=== PATIENT | male | born 1990 | race Two or more races ===

== ENCOUNTER 2023-07-10 19:03 | Day surgery (SDC) | payer OTHER, SELFPAY ==
[2023-07-10] VITALS (7 sets, daily range): BP systolic 105–142; BP diastolic 61–79; PULSE 73–104; RESP 15–19; TEMP 36.8–37; O2SAT 95–98; BMI 31.6
--- NOTE | ~2023-07-10 | XR_ITS ---
EXAMINATION: XR SOFT TISSUE NECK CLINICAL INDICATION: Foreign body chicken. COMPARISON: None available. TECHNIQUE: 2 views of the soft tissue neck were obtained. FINDINGS: Soft tissue films of the neck demonstrate a normal larynx, pharynx and upper trachea. No soft tissue swelling or opaque foreign body is demonstrated. No compromise of the areas seen. There is reversal of cervical lordosis. XR/XR soft tissue neck IMPRESSION: Unremarkable soft tissue neck examination.
--- NOTE | 2023-07-10 19:23 | ED.GENADULT ---
HPI - General Adult General Chief complaint: General Medical Stated complaint: CHOKED ON CHICKEN,STILL FEELS IN THROAT PER EMS Time Seen by Provider: 07/10/23 19:14 Source: patient Mode of arrival: ambulatory Limitations: no limitations History of Present Illness HPI narrative: Patient was healthy was eating chicken choked on it unable to swallow after that unable to swallow his secretions speech is normal never had similar incident in the past feels piece of meat choked is throat speaking full sentences Related Data Allergies Allergy/AdvReac Type Severity Reaction Status Date / Time walnut Allergy Intermediate UNKNOWN Unverified 04/24/22 14:40 bee pollen [Bee Stings] AdvReac Intermediate UNKNOWN Unverified 04/24/22 14:40 From PERCOCET Allergy Unknown HIVES Uncoded 04/24/22 14:40 Review of Systems Review of Systems: Yes all other systems are reviewed and are negative [facility] Social History Social History Advance Directives: No Advance Directives Information Provided: No Physical Exam ED Vital Signs: Vital Signs - 24 hr 07/10/23 19:09 07/10/23 19:47 07/10/23 23:10 Temperature 98.6 F 98.3 F 98.6 F Pulse Rate 93 98 86 Respiratory Rate 18 19 15 Blood Pressure 111/79 115/73 112/64 Pulse Oximetry 98 98 96 Oxygen Delivery Method Room Air Room Air Nasal Cannula 07/10/23 23:15 07/10/23 23:20 07/10/23 23:25 Temperature Pulse Rate 83 80 78 Respiratory Rate 15 15 15 Blood Pressure 106/70 110/72 112/69 Pulse Oximetry 96 95 96 Oxygen Delivery Method Nasal Cannula Nasal Cannula Room Air 07/10/23 23:40 Temperature 98.6 F Pulse Rate 73 Respiratory Rate 15 Blood Pressure 105/61 Pulse Oximetry 96 Oxygen Delivery Method Room Air BMI result Body Mass Index 31.6 Appearance: Alert. Oriented X3. In mild distress Eyes: PERRLA, No Nystagmus ENT: Pharynx normal. Oral Mucosa moist no stridor Neck: Normal inspection. Neck supple. CVS: Normal heart rate and rhythm. Pulses normal. Respiratory: No respiratory distress. Equal air entry bilateral, no wheezing/rales/rhonchi Abdomen: Soft and nontender. Bowel sounds are present, Skin: Skin warm and dry. Normal skin color. Normal skin turgor. Extremities: No lower extremity edema. No calf tenderness Neuro: Oriented X 3. Medications Administered Discontinued Medications Generic Name Dose Route Start Last Admin Trade Name Santhosh PRN Reason Stop Dose Admin Famotidine 20 mg 07/10/23 20:23 07/10/23 20:32 Famotidine/Pf 20 Mg/2 Ml Vial IVPUSH 07/10/23 20:24 20 mg ONCE ONE Administration Glucagon 1 mg 07/10/23 19:17 07/10/23 19:40 Glucagon Hcl 1 Mg Vial IVPUSH 07/10/23 19:18 1 mg ONCE ONE Administration Sodium Chloride 1,000 mls @ 999 mls/hr 07/10/23 19:17 07/10/23 21:31 Ns IV 07/10/23 20:17 Infused .Q1H1M ONE Infusion Morphine Sulfate 4 mg 07/10/23 20:23 07/10/23 20:34 Morphine Sulfate 4 Mg/Ml Cartridge IVPUSH 07/10/23 20:24 4 mg ONCE ONE Administration Protocol Ondansetron HCl 4 mg 07/10/23 20:23 07/10/23 20:34 Ondansetron Hcl 4 Mg/2 Ml Vial IVPUSH 07/10/23 20:24 4 mg ONCE ONE Administration Medical Decision Making Medical Decision Making [facility] Narrative: Patient with acute foreign body piece of chicken meat impacted upper esophagus unable to swallow liquids or his own secretions IV glucagon tried without any success Gas-X was also tried without any success. Will call transformer repairer for endoscopy removal of the foreign body Dr. Rodriguez here take the patient to OR for endoscopy Independent Interpretation I performed an independent interpretation of an: Plain X-Ray Radiology Impression Discussion of test interpretation with radiology: I have reviewed the radiologist's reading. Radiologist Impression: [address] [address] XRay Report Signed Patient: Cdoy Cueva MR#: [id number] : 1990 Acct:[id number] Age/Sex: 32 / M ADM Date: 07/10/23 Loc: .ED Attending Dr: Ordering Physician: Clifford Moore MD Date of Service: 07/10/23 Procedure(s): XR soft tissue neck Accession Number(s): [id number] cc: Physician,Unknown ; Clifford Moore MD~ EXAMINATION: XR SOFT TISSUE NECK CLINICAL INDICATION: Foreign body chicken. COMPARISON: None available. TECHNIQUE: 2 views of the soft tissue neck were obtained. FINDINGS: Soft tissue films of the neck demonstrate a normal larynx, pharynx and upper trachea. No soft tissue swelling or opaque foreign body is demonstrated. No compromise of the areas seen. There is reversal of cervical lordosis. XR/XR soft tissue neck IMPRESSION: Unremarkable soft tissue neck examination. Discharge Plan Discharge Clinical Impression: Esophageal foreign body Patient Disposition: Still a Patient Discharge Date/Time: 07/10/23 22:06
[2023-07-10] MEDS: glucagon HCL 1 MG VIAL IVPUSH (19:40)
[2023-07-10] MEDS: 0.9 % Sodium Chloride 1,000 ML 999 ML IV (19:42)
[2023-07-10] MEDS: Famotidine/PF 20 MG/2 ML VIAL IVPUSH (20:32)
[2023-07-10] MEDS: ondansetron HCL 4 MG/2 ML VIAL IVPUSH (20:34)
[2023-07-10] MEDS: Morphine Sulfate 4 MG/ML CARTRIDGE IVPUSH (20:34)
--- NOTE | 2023-07-10 20:39 | PC.NURSE ---
pt a&ox4, vss, continuing to report sensation of chicken stuck in the back of his throat and acid reflux, pt reports difficulty swallowing secretions. 20G IV placed right AC, medicated per OCT.
--- NOTE | 2023-07-10 21:20 | MHC.SHP ---
Pre-Procedural Eval Section A Date of Service: 07/10/23 The patient is an INPATIENT: No The History & Physical has been completed within 30 days and I have reviewed it.: Yes Section B Chief Complaint: CHOKED ON CHICKEN,STILL FEELS IN THROAT PER EMS Allergies: Allergies Allergy/AdvReac Type Severity Reaction Status Date / Time walnut Allergy Intermediate UNKNOWN Unverified 04/24/22 14:40 bee pollen [Bee Stings] AdvReac Intermediate UNKNOWN Unverified 04/24/22 14:40 From PERCOCET Allergy Unknown HIVES Uncoded 04/24/22 14:40 Plan I have reviewed the history and physical and performed a pertinent physical examination on my patient. No changes have occurred unless specified. Time Spent With Patient Time: Total time managing care of this patient today ____ minutes.
--- NOTE | 2023-07-10 21:20 | PM.EVENT ---
Event Note Date of Service: 07/10/23 Event Note: GI Consult-Full note dictated Imp: Esophageal obstruction due to food that remains refractory to medical therapy. He remains unable to swallow saliva. Rec: EGD with KEENA rodriguez. Full consent obtained from him and his significant other, including risks of bleeding and perforation. They were comfortable with this plan. Thanks. Time Spent With Patient Time: Total time managing care of this patient today ____ minutes.
--- NOTE | 2023-07-10 21:31 | PC.NURSE ---
RN-RN report given to OR, pt changed over, OR at bedside for pt transport.
--- NOTE | 2023-07-10 23:09 | P.BOP_ITS ---
Brief Operative Note Date of Service: 07/10/23 Pre-op diagnosis: Esophageal obstruction Post-op diagnosis: other (Same, R/O EoE) Procedure: Upper endoscopy with removal of food bolus, and biopsies Surgeon: Krish Rodriguez MD Anesthesia: GETA and other (Glucagon 1mg IV x 2 doses) Was an Lead Java Developer Architect used for this Procedure?: No Estimated blood loss (mL): 2.0 Pathology: other (Esophagus 20-25cm) Condition: stable Disposition: PACU
--- NOTE | 2023-07-10 23:14 | HO.ANESPROP2 ---
PMF Active Problems Active Problems: All Active Problems (Updated 07/10/23 @ 21:18 by Clifford Moore MD) Esophageal foreign body (Acute) Family History Family history of problems with anesthesia: No Surgical History History of Problems with Anesthesia: No Social History Social History Advance Directives: No Advance Directives Information Provided: No Meds Allergies Allergy/AdvReac Type Severity Reaction Status Date / Time walnut Allergy Intermediate UNKNOWN Unverified 04/24/22 14:40 bee pollen [Bee Stings] AdvReac Intermediate UNKNOWN Unverified 04/24/22 14:40 From PERCOCET Allergy Unknown HIVES Uncoded 04/24/22 14:40 Exam Height,Weight and Vital Signs: Height 6 ft 4 in Weight 117.934 kg Last Vital Signs Temp 98.6 F 07/10/23 23:10 Pulse 86 07/10/23 23:10 Resp 15 07/10/23 23:10 BP 112/64 07/10/23 23:10 Pulse Ox 96 07/10/23 23:10 O2 Del Method Nasal Cannula 07/10/23 23:10 Airway Mallampati Class: II TM Dist: >3cm Neck ROM: Full Assessment and Plan Assessment Anesthesia Assessment: Anesthesia Plan Discussed and Chart Reviewed Final Anesthetic Review Family History of Problems with Anesthesia: No History of Problems with Anesthesia: No NPO: No ASA Class: II and Emergency Final Preanesthetic Review: No Changes in Pt Med Stat, Meds/Allgs Chart Reviewed, Consent Obtained/Reviewed and Anes Risks/Benef Reviewed Patient Risk: Intermediate Procedure Risk: Low Anesthetic Plan Anesthetic Plan: GA Disposition: Standard PACU
--- NOTE | 2023-07-11 01:12 | OP_ITS ---
DATE OF SERVICE: 07/10/2023 SURGEON: Krish Rodriguez MD INDICATIONS: The patient presents for evaluation of acute esophageal obstruction and dysphagia. Full consent has been obtained from him for this, including risks of bleeding and perforation. PREOPERATIVE DIAGNOSIS: Esophageal obstruction and dysphagia. POSTOPERATIVE DIAGNOSIS: PROCEDURE PERFORMED: Upper endoscopy with removal of esophageal food bolus and biopsies. ESTIMATED BLOOD LOSS: COMPLICATIONS: ANESTHESIA: General anesthesia and glucagon 1 mg IV x2 doses. ASSISTANTS: SPECIMENS: POSTOPERATIVE DIAGNOSES: Esophageal obstruction and dysphagia, rule out eosinophilic esophagitis. DESCRIPTION OF PROCEDURE: The patient was placed in the supine position. The Olympus video gastroscope was passed in the posterior oropharynx and upper esophagus under direct vision. At approximately 20 cm was a food bolus. This was quite firm and would not move while trying to push it with the gastroscope. At that point, I spent about 1 hour breaking up the food bolus with a combination of biopsy forceps, a 3 pronged grasper, a cold snare, and a retrieval net. After about 1 hour, I was able to sufficiently break it up and then finally pull out a large piece of chicken with the 3 pronged grabber. At that point, the scope was passed back into the esophagus under direct vision. I was able to then easily advance to the gastroesophageal junction at 40 cm and then enter the stomach. However, the stomach had a fair amount of liquid and food as well. Therefore, inspection of the stomach was not made. The gastroesophageal junction at 40 cm appeared patent and without any sign of stricture. There was some edema and erythema but no ulceration nor mass. The entire esophagus was carefully inspected and any residual food was pushed into the stomach. I did not visualize any esophageal mucosal abnormalities other than areas of edema and some erythema. There was no ulceration nor stricture. The proximal esophagus where the food had lodged did not seem to have any ruptured ring nor other significant narrowing. I did feel there were some subtle proximal esophageal rings and biopsies were obtained between 20 and 25 cm to rule out eosinophilic esophagitis. At that point, the scope was withdrawn from the patient. He tolerated the procedure well and was returned to the recovery area in stable condition. IMPRESSION: 1. Esophageal obstruction, status post upper endoscopy and removal of food bolus. 2. Rule out eosinophilic esophagitis. PLAN: The results of the biopsies will be checked. I shall send him home with a prescription to use omeprazole 40 mg daily for 1 month. I do not think he needs to be on it chronically at this time. He has been given instructions to avoid aspirin and NSAIDs for least a week. He has been given instructions to obviously eat carefully and be sure to cut up any meat or hard food. I will plan to see him in the office. If he has no further symptoms, then I do not think he would need any further evaluation. If he continues to have significant dysphagia, we may want to proceed with a barium swallow, esophageal motility studies, and/or repeat upper endoscopy. This has been discussed in detail with the patient and his significant other. MD GISELE Penn/ARTHUR / [id number] MTDD
--- NOTE | 2023-07-11 01:52 | CONS_ITS ---
DATE OF SERVICE: 07/10/2023 REASON FOR CONSULTATION: Esophageal obstruction and dysphagia. HISTORY OF PRESENT ILLNESS: This has been obtained from the patient. The patient is a 32-year-old male who was in his usual state of health up until early this evening when he was having chicken soup and developed acute esophageal obstruction. Since that time, he has been unable to swallow any liquids nor saliva. He was treated with glucagon in the ER, but without any relief. He reports that he has never had this problem before. He denies any chronic heartburn nor any other symptoms of dysphagia in the past. He enjoys a good appetite otherwise. He does describe some symptoms of irritable bowel syndrome and describes taking what sounds like dicyclomine several times a day for that. He denies any present problems with chest pain, shortness of breath, nor abdominal pain since the dysphagia began. He denies any known family history of esophageal disease. MEDICATIONS: At home, possible dicyclomine. PAST MEDICAL HISTORY: Irritable bowel syndrome by his description. He denies any history of heart disease, diabetes, stroke, lung disease, nor kidney disease. 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 He denies any other surgeries. SOCIAL HISTORY: He has a significant other who is presently with him at the bedside. He vapes occasionally but does not smoke by his history. He does not use any significant amounts of alcohol. He denies the use of any drugs. 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 FAMILY HISTORY: Noncontributory. REVIEW OF SYSTEMS: CONSTITUTIONAL: Prior to this episode, he was feeling well with good energy, good appetite. CARDIAC: No chest pain. PULMONARY: No coughing nor hemoptysis. GI: As above. URINARY: No dysuria, no hematuria. NEUROLOGIC: No headache or seizures. PHYSICAL EXAMINATION: GENERAL: The patient is a pleasant, alert, somewhat uncomfortable male. He is not in any distress. SKIN: Warm and dry. Anicteric sclerae. Moist mucous membranes. NECK: Supple without lymphadenopathy nor crepitus. CHEST: Clear bilaterally. There is no chest wall crepitus. CARDIAC: Normal S1, S2. ABDOMEN: Soft, nondistended, nontender. EXTREMITIES: Without edema. LABORATORY DATA: Soft tissue x-rays of his neck were unremarkable and without any sign of foreign body as per the x-ray report. IMPRESSION: The patient is a 32-year-old healthy male presenting with acute esophageal obstruction. Given no prior symptoms of dysphagia nor heartburn, I suspect this was simply too large of a piece of food that became lodged in the esophagus and is causing his dysphagia. Given no prior symptoms, I doubt this represents any type of esophageal stricture. Given refractory symptoms, he will undergo upper endoscopy under general anesthesia this evening. Full consent has been obtained from the patient and his significant other for this, including risks of bleeding and perforation. The patient and his significant other are comfortable with this plan. Thank you for the consultation. MD GISELE Penn/ARTHUR / [id number] MTDD
== END 2023-07-10 21:24 | disposition home or self-care (01) ==
LOC: HO.ED 21:18 → HO.SSS 21:24
PROVIDERS: Emergency Provider Internal Medicine; Visit Provider Internal Medicine
PROC: 0DJ08ZZ Inspection of Upper Intestinal Tract, Via Natural or Artificial Opening Endoscopic (ICD-10-PCS; CPT 43235; principal; 2023-07-10 21:30)
DX: T18.128A Food in esophagus causing other injury, initial encounter (principal); W44.F3XA Food entering into or through a natural orifice, initial encounter; K22.2 Esophageal obstruction; K20.80 Other esophagitis without bleeding; Y93.89 Activity, other specified; Y92.9 Unspecified place or not applicable; Y99.9 Unspecified external cause status; Z79.899 Other long term (current) drug therapy; R13.10 Dysphagia, unspecified
CPT/HCPCS: 43215; 43202; 70360; 88305; 96361; 96374; 96375; 99284; 99285; J1100; J1610; J2270; J2405; J2704

== ENCOUNTER → 2023-10-07 12:15 | Outpatient (BNVA) | payer OTHER, SELFPAY | PROVIDERS: Visit Provider Physician Assistant Medical | DX: S39.012A Strain of muscle, fascia and tendon of lower back, initial encounter (principal); X50.3XXA Overexertion from repetitive movements, initial encounter | CPT/HCPCS: 99203 ==

== ENCOUNTER → 2023-10-10 13:08 | Outpatient (BNVA) | payer OTHER, SELFPAY | PROVIDERS: Visit Provider Physician Assistant Medical | DX: S39.012A Strain of muscle, fascia and tendon of lower back, initial encounter (principal); X50.3XXA Overexertion from repetitive movements, initial encounter | CPT/HCPCS: 99213 ==

== ENCOUNTER → 2023-10-28 13:03 | Outpatient (BNVA) | payer OTHER, SELFPAY | PROVIDERS: Visit Provider Physician Assistant Medical | DX: M54.50 Low back pain, unspecified (principal); M54.16 Radiculopathy, lumbar region | CPT/HCPCS: 99213 ==

== ENCOUNTER 2023-11-04 09:00 | Outpatient (RCR) | payer OTHER, SELFPAY ==
--- NOTE | 2023-10-14 15:35 | MHC.PT.EP ---
[facility] [place] Office [place] Office [place] Office [address] Jania Bourgeois [address] [phone] F: [phone] F: [phone] F: [phone] F: [phone] Physical Therapy Plan of Care Date of Evaluation: 10/14/23 Date of Surgery: Diagnosis: Lumbar Strain Assessment: Pt is a 33 y/o male referred to PT for eval and treat of lumbar strain which he sustained at his work on 10/07/23 when he bent over to manage a hose on 10/07/23 and his current condition results in decreased tolerance for driving, sleeping, lifting objects of weight or objects from the floor, walking long distances, and sitting for even short duration secondary to decreased trunk ROM, decreased core strength, increased B R > L LE tissue tension and neural tension, decreased B LE strength, postural compensation, and pain. Pt is deemed an appropriate candidate to receive skilled PT services to address their physical impairments in order to improve their functional ability. Frequency and Duration: The patient will be seen 2 x/ wk x5 wks. Short Term Goals: Initiate home program. Improve baseline pain to < 2-7/10; initial: 3-9/10. Crm Coordinator Goals: I with home program. R LE Sx abolished. Pt will be able to walk long distances with managed pain. Pt will be able to sit > 1 hour with managed Sx; initial: < 30 min. Pt will report at least 3/4 restful night's sleep; initial: 1/2. Treatment Plan: Modalities to reduce pain, spasms and effusion. Manual therapy to restore motion and function. Therapeutic exercise to improve strength and flexibility. Neuromuscular re-education for posture and balance. Therapeutic activities to return to functional activities of daily living. Electronically signed by: Jose Li PT Please sign and return to therapist. Thank you for your referral.
--- NOTE | 2023-11-22 09:23 | MHC.PT.DC ---
[facility] [place] Office [place] Office [place] Office [address] Jania Bourgeois [address] [phone] F: [phone] F: [phone] F: [phone] F: [phone] Physical Therapy Discharge Report Diagnosis: Lumbar Strain Date of Surgery: Date of Evaluation: 10/14/23 Date of Discharge: 11/22/23 Treatments to Date: 5 Cancellations to Date: 2 No Shows to Date: 3 Discharge Status: Recommend MD Follow-up Visit Non-compliance Discharge Summary: Pt has not returned to PT after his last apt likely d/t management post imaging studies logging 2 cancellations and 3 no show apts. Note from 11/03/22: Pt reports to WC today and has imaging scheduled for later this week d/t Pt's c/o worsening Sx and peripheralization we only trialed prone positioning and E-sim. PT likely holding progress until imaging. Electronically signed by: Jose Li PT. Please sign and return to therapist. Thank you for your referral.
== END 2023-11-22 09:24 | disposition home or self-care (01) ==
LOC: HO.PT 09:00
PROVIDERS: Visit Provider Physician Assistant Medical
DX: S39.012D Strain of muscle, fascia and tendon of lower back, subsequent encounter (principal); X50.3XXD Overexertion from repetitive movements, subsequent encounter
CPT/HCPCS: 97014; 97110; 97140; 97161

== ENCOUNTER → 2023-11-04 09:39 | Outpatient (BNVA) | payer OTHER, SELFPAY | PROVIDERS: Visit Provider Physician Assistant Medical | DX: M54.42 Lumbago with sciatica, left side (principal) | CPT/HCPCS: 99213 ==

== ENCOUNTER 2023-11-07 19:53 | Outpatient (REF) | payer OTHER, SELFPAY ==
--- NOTE | ~2023-11-07 | MR_ITS ---
EXAMINATION: MR LUMBAR SPINE WITHOUT CONTRAST CLINICAL INFORMATION: Persistent pain radiating down left leg COMPARISON: None TECHNIQUE: MRI of the lumbar spine was obtained using routine sequences without contrast. FINDINGS: Slightly motion degraded examination Normal anatomic alignment. No suspicious marrow signal or focal osseous lesion. No significant marrow edema. The vertebral body heights are maintained. Disc desiccation and height loss at L5-S1. The conus medullaris terminates at the level of T12. The distal spinal cord is normal in appearance. The cauda equina nerve roots appear normal. No significant abnormalities of the paraspinal musculature. Limited evaluation of the intra-abdominal structures without significant abnormalities. The abdominal aorta is of normal contour and caliber. SPINAL LEVELS: L1-L2: No significant spinal canal or neuroforaminal narrowing. L2-L3: No significant spinal canal or neuroforaminal narrowing. Mild facet arthropathy. L3-L4: No significant spinal canal or neuroforaminal narrowing. Mild facet arthropathy. L4-L5: No significant spinal canal or neuroforaminal narrowing. Shallow disc bulge, facet arthropathy. Bilateral subarticular zone narrowing with possible impingement of the traversing L5 nerve roots. L5-S1: No significant spinal canal or neuroforaminal narrowing. Shallow right subarticular disc protrusion impinges the traversing right S1 nerve root. Mild facet arthropathy. MR/MR lumbar spine wo con IMPRESSION: Overall mild multilevel degenerative changes of the lumbar spine as detailed above, most notable at L4-L5 and L5-S1: 1. At L4-L5, there is bilateral subarticular zone narrowing with possible impingement of the traversing L5 nerve roots. 2. At L5-S1, a right subarticular disc protrusion impinges the traversing right S1 nerve root.
== END 2023-11-07 19:54 | disposition home or self-care (01) ==
LOC: HO.MRI 19:53
PROVIDERS: Visit Provider Internal Medicine
DX: M54.50 Low back pain, unspecified (principal); M79.605 Pain in left leg
CPT/HCPCS: 72148

== ENCOUNTER → 2023-11-11 14:55 | Outpatient (BNVA) | payer OTHER, SELFPAY | PROVIDERS: Visit Provider Physician Assistant Medical | DX: S39.012D Strain of muscle, fascia and tendon of lower back, subsequent encounter (principal); X50.3XXD Overexertion from repetitive movements, subsequent encounter; M54.16 Radiculopathy, lumbar region | CPT/HCPCS: 99213 ==

== ENCOUNTER → 2023-11-14 13:58 | Outpatient (BNVA) | payer OTHER, SELFPAY | PROVIDERS: Visit Provider Physician Assistant Medical | DX: M54.17 Radiculopathy, lumbosacral region (principal) | CPT/HCPCS: 99213 ==